=== PATIENT | male | born 2000 | race Asian ===

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

== ENCOUNTER 2019-09-07 16:10 | Emergency (ER) | payer MEDICAID ==
[~2019-09-07] VITALS: Ht 172.7 cm; Wt 100.0 kg
[2019-09-07] MEDS ORDERED: KETOROLAC 60MG/2ML VIAL IM ONE (19:00)
[2019-09-07 19:26] VITALS: BP 122/74
== END 2019-09-07 19:56 | disposition home or self-care (01) ==
LOC: ER 16:17
DX: S02.651A Fracture of angle of right mandible, initial encounter for closed fracture (principal); S02.602A Fracture of unspecified part of body of left mandible, initial encounter for closed fracture; Y04.2XXA Assault by strike against or bumped into by another person, initial encounter; Y93.89 Activity, other specified; Y92.89 Other specified places as the place of occurrence of the external cause
CPT/HCPCS: 70486; 96372; 99284; J1885

== ENCOUNTER 2020-01-09 10:07 | Emergency (ER) | payer SELFPAY ==
[~2020-01-09] VITALS: Ht 182.9 cm; Wt 91.0 kg
[2020-01-09] MEDS ORDERED: SODIUM CHLORIDE 0.9% 1,000 ML IV ONE ×2 (10:18→13:41)
[2020-01-09] MEDS ORDERED: LORAZEPAM 2MG/ML CPJ IV ONE ×2 (10:30→11:30)
[2020-01-09 11:54] LABS: BASOPHILS % 0.2 % (0.0-2.0); CHLORIDE 110 mEq/L (98-107); EOSINOPHILS % 0.1 % (0.0-5.0); HEMATOCRIT. 44.2 % (42.0-52.0); HEMOGLOBIN. 14.9 g/dL (14.0-18.0); LYMPHOCYTES % 8.3 % (20.0-50.0); MEAN CORPUSCULAR HEMOGLOBIN 29.1 pg (28.0-32.0); MEAN CORPUSCULAR VOLUME 86.4 fL (80.0-94.0); MEAN PLATELET VOLUME 8.3 fl (7.4-10.4); MONOCYTES % 6.2 % (2.0-8.0); NEUTROPHILS % 85.2 % (40.0-76.0); PLATELET 316 x1000/uL (130-400); RED BLOOD CELL COUNT 5.12 mill/uL (4.7-6.1); RED CELL DISTRIBUTION WIDTH 14.8 % (11.6-14.6)
[2020-01-09 11:57] LABS: ETHANOL BLOOD < 10 mg/dL
[2020-01-09] MEDS ORDERED: OLANZAPINE 10 MG/VIAL IM ONE (12:00)
[2020-01-09 15:57] LABS: *AMPHETAMINES SCREEN URINE PRESUMTIVE POSITIVE (NEGATIVE); CANNABINOID URINE SCREEN PRESUMTIVE POSITIVE (NEGATIVE); METHADONE URINE SCREEN NEGATIVE (NEGATIVE); OPIATES URINE SCREEN NEGATIVE (NEGATIVE); PHENCYCLIDINE URINE SCREEN NEGATIVE (NEGATIVE)
[2020-01-09 15:58] LABS: *BARBITURATES SCREEN URINE NEGATIVE (NEGATIVE); *BENZODIAZEPINES SCREEN URINE NEGATIVE (NEGATIVE); *COCAINE SCREEN URINE NEGATIVE (NEGATIVE)
[2020-01-10] VITALS: BP 113/82
== END 2020-01-10 | disposition home or self-care (01) ==
LOC: ER 10:12
DX: F15.10 Other stimulant abuse, uncomplicated (principal); R00.0 Tachycardia, unspecified
CPT/HCPCS: 36415; 80053; 80305; 80307; 80320; 80329; 85025; 93005; 96361; 96372; 96374; 96376; 99285; J2060; J3490; J7030; G0480

== ENCOUNTER 2020-07-04 07:34 | Emergency (ER) | payer MEDICAID, OTHER ==
[~2020-07-04] VITALS: Ht 177.8 cm; Wt 100.0 kg
[2020-07-04] MEDS ORDERED: LIDOCAINE HCL/PF 1% 10 MG/ML 5ML VIAL IJ ONE (08:00)
[2020-07-04] MEDS ORDERED: SULF1TAB48 MT (08:35)
[2020-07-04] MEDS ORDERED: KEFLL21 PO ×2 (08:35)
[2020-07-04] MEDS ORDERED: CEPH500T MT (08:40)
[2020-07-04 08:48] VITALS: BP 120/78
== END 2020-07-04 08:48 | disposition home or self-care (01) ==
LOC: ER 07:54
DX: S61.412A Laceration without foreign body of left hand, initial encounter (principal); S61.411A Laceration without foreign body of right hand, initial encounter; W26.8XXA Contact with other sharp object(s), not elsewhere classified, initial encounter; R03.0 Elevated blood-pressure reading, without diagnosis of hypertension; Y93.39 Activity, other involving climbing, rappelling and jumping off; Y92.488 Other paved roadways as the place of occurrence of the external cause
CPT/HCPCS: 12001; 99283; A4217; J3490; Z7610